=== PATIENT | female | born 1960 | race Two or more races ===

== ENCOUNTER → 2019-04-09 | Outpatient (CLI) | payer BC ==
[2015-08-09 14:45] VITALS: BP 107/67
[~2019-04-09] MED LIST: ATOR10TA PO; CHOL200059 PO; CIPR500T94 PO; CONTRAST GIVEN. MC PRN; HYDR-2679 PO; IOHEXOL 240 MG/ML 50ML VIAL. PO ONE; IOHEXOL 300 MG/ML 100ML VIAL. IV ONE; OMEP20CA5 PO; [UNRECOGNIZED DRUG - OTHER]
--- NOTE | 2019-04-09 16:16 | KCIC ---
CT ABD PELV W/ORAL IV CONTRAST Indication: Left lower quadrant pain after eating, diverticulosis Technique: Postcontrast CT imaging was performed of the abdomen and pelvis, multiplanar reconstruction images submitted. Oral contrast was also given. One or more of the following individualized dose reduction techniques were utilized for this examination: 1. Automated exposure control 2. Adjustment of the mA and/or kV according to patient size 3. Use of iterative reconstruction technique. Comparison: July 18, 2015 Findings: There is some atelectasis of the visualized lung bases. There is hepatic steatosis. Gallbladder is present without obvious intraluminal abnormality by CT. No focal abnormality is identified of the pancreas or spleen. There is no adrenal nodularity. Both kidneys enhance. Tiny 0.5 cm hypodense lesion of the superior left kidney is too small to characterize, not well-visualized on previous noncontrast exam. There is mild left renal pelviectasis. Bowel is not dilated. There is no significant inflammatory type change about the bowel. Normal caliber appendix is visualized without adjacent inflammatory change. There is no free fluid of free air. There has been hysterectomy. There are some phleboliths in the left pelvis. IMPRESSION: 1. There is no significant inflammatory change or other acute abnormality. 2. There is hepatic steatosis. Electronically signed by: Gary Clarke MD (04/09/2019 4:13 PM) [id number]
== END ==
LOC: KCIC CT 11:42
PROVIDERS: ATTEND Family Medicine
DX: K76.0 Fatty (change of) liver, not elsewhere classified (principal); K57.90 Diverticulosis of intestine, part unspecified, without perforation or abscess without bleeding
CPT/HCPCS: 74177; Q9966; Q9967